=== PATIENT | male | born 1965 | race Hispanic/Latino ===

== ENCOUNTER 2021-10-05 18:35 | Inpatient (IN) | payer OTHER, SELFPAY ==
[~2021-10-05 18:35] MED LIST: Iopamidol-370 76% 500 ML 1 ML ONE
[2021-10-05 19:22] LABS: Hemoglobin 12.2 g/dL (14.0-18.0); Mean Corpuscular HGB CONC 33.4 g/dL (32.0-36.0); Mean Corpuscular Hemoglobin 30.6 pg (27.0-31.0); Mean Corpuscular Volume 91.6 fL (78.0-98.0); Red Blood Cell (RBC) Count 3.99 mill/uL (4.70-6.10); White Blood Cell (WBC) Count 4.3 thou/uL (4.8-10.8)
[2021-10-05 19:23] LABS: #Monocytes 0.4 thou/uL (0.11-0.59); #Neutrophils 2.8 thou/uL (1.40-6.50); %Basophils 0.5 % (0.0-1.0); %Eosinophils 1.1 % (0.0-10.0); %Lymphocytes 22.5 % (21.0-51.0); %Monocytes 9.9 % (0.0-10.0)
[2021-10-05 19:39] LABS: ALT (SGPT) 81 U/L (8-55); AST (SGOT) 86 U/L (5-34); Albumin 3.4 g/dL (3.5-5.0); Alcohol Less than 10 mg/dL (Less than 10); Alkaline Phosphatase 91 U/L (40-110); Anion Gap 15 mmol/L (10-20); BUN (Urea Nitrogen) 15 mg/dL (8.4-25.7); Calc. Creatinine Clearance 0 mL/min (70-130); Calcium 8.9 mg/dL (7.8-10.44); Carbon Dioxide 22 mmol/L (22-29); Chloride 99 mmol/L (98-107); Globulin 3.2 g/dL (2.4-3.5); Glucose 227 mg/dL (70-105); Potassium 4.1 mmol/L (3.5-5.1); Protein, Total 6.6 g/dL (6.0-8.3); Sodium 132 mmol/L (136-145)
[2021-10-05 19:43] LABS: Mean Platelet Volume 8.8 fL (7.4-10.4); Platelet Count 69 thou/uL (130-400); Platelet Morphology Comment Appears Decreased; RBC Morphology Normal
[2021-10-05 19:53] LABS: INR-International Normal Ratio 1.3; PTT 32.1 sec (22.9-36.1)
[2021-10-05 20:53] LABS: Actual Bicarbonate (HCO3a) 22.9 mEq/L (22-28); Analyzer IN Cardio ER; CO2 Tension 44.1 mmHg (35.0-45.0); Calcium, Ionized (arterial) 1.16 mmol/L (1.12-1.30); Carboxyhemoglobin (COHb) 0.7 gm% (0.0-3.0); Hemoglobin (Hb) 13.9 g/dL (14.0-18.0); O2 Tension (PaO2), arterial 83.6 mmHg (80.0-100.0); Potassium - ABG Lab 4.94 mmol/L (3.70-5.30); pH, Arterial 7.33 (7.35-7.45)
[2021-10-05 20:57] LABS: ALV-art Gradient 60.915 mmHg (0-20); Puncture Site RRA
[2021-10-05 21:11] LABS: Bacteria/HPF None Seen HPF (None Seen); Bilirubin Negative (Negative); Blood, Urine 1+ (Negative); Clarity Clear (Clear); Glucose, Urine (Dipstick) 70 mg/dL (Negative); Ketone, Urine 10 mg/dL (Negative); Leukocyte Negative Leu/uL (Negative); Nitrite Negative (Negative); Protein, Urine (Dipstick) 20 mg/dL (Neg-Trace); RBC/HPF 0-3 HPF (0-3); Squamous Epithelial None Seen HPF (0-3); Urobilinogen Normal mg/dL (Less than 2); WBC/HPF 0-3 HPF (0-3); pH, Urine 5.5 (5.0-9.0)
[2021-10-05 21:15] LABS: Specific Gravity, Urine 1.045 (1.002-1.036)
[2021-10-05 21:17] LABS: Amphetamine Detected (NotDetected); Barbiturates Screen Not Detected (NotDetected); Benzodiazepine Screen Not Detected (NotDetected); Cocaine Metabolite Screen Not Detected (NotDetected); Methadone Not Detected (NotDetected); Methamphetamine Not Detected (NotDetected); Opiate Screen Not Detected (NotDetected); Oxycodone Screen Not Detected (NotDetected); Phencyclidine (PCP) Not Detected (NotDetected); THC/Cannabinoid Screen Detected (NotDetected); Tricyclic Screen Not Detected (NotDetected)
[2021-10-05 21:47] LABS: SARS-CoV-2 NAA Rapid Test Not Detected (NotDetected)
[2021-10-05 22:13] LABS: Lactic Acid 2.2 mmol/L (0.5-2.2)
[2021-10-05 22:47] VITALS: BMI 43.3
[2021-10-05] MEDS: Sodium Chloride 0.9% 1,000 ML IV SCH (23:22)
[2021-10-06] MEDS ORDERED: Acetaminophen 325 MG TAB PO PRN (00:35)
[2021-10-06] MEDS ORDERED: Dextrose 5% in Water 1,000 ML IV PRN (00:36)
[2021-10-06] MEDS ORDERED: Dextrose 50% Abboject 50 ML SYRINGE SLOW IVP PRN (00:36)
[2021-10-06] MEDS ORDERED: HumaLOG 300 UNITS/3 ML VIAL SC PRN (00:36)
[2021-10-06] MEDS ORDERED: hydrALAZINE 20 MG/ML VIAL SLOW IVP PRN (00:39)
[2021-10-06 04:20] LABS: #Lymphocytes 0.6 thou/uL (1.20-3.40); #Monocytes 0.3 thou/uL (0.11-0.59); %Eosinophils 0.3 % (0.0-10.0); %Lymphocytes 15.7 % (21.0-51.0); %Monocytes 6.9 % (0.0-10.0); %Neutrophils 77.1 % (42.0-75.0); Hemoglobin 11.8 g/dL (14.0-18.0); Mean Corpuscular HGB CONC 34.6 g/dL (32.0-36.0); Mean Corpuscular Hemoglobin 31.7 pg (27.0-31.0); Mean Corpuscular Volume 91.7 fL (78.0-98.0); Mean Platelet Volume 9.4 fL (7.4-10.4); Platelet Count 61 thou/uL (130-400); RBC Distribution Width 11.9 % (11.5-14.5); Red Blood Cell (RBC) Count 3.73 mill/uL (4.70-6.10); White Blood Cell (WBC) Count 3.9 thou/uL (4.8-10.8)
[2021-10-06 04:28] LABS: ALT (SGPT) 77 U/L (8-55); AST (SGOT) 76 U/L (5-34); Albumin 3.5 g/dL (3.5-5.0); Alkaline Phosphatase 96 U/L (40-110); Anion Gap 10 mmol/L (10-20); BUN (Urea Nitrogen) 17 mg/dL (8.4-25.7); Bilirubin, Total 0.8 mg/dL (0.2-1.2); Calc. Creatinine Clearance 134 mL/min (70-130); Calcium 9.2 mg/dL (7.8-10.44); Carbon Dioxide 28 mmol/L (22-29); Chloride 102 mmol/L (98-107); Globulin 3.4 g/dL (2.4-3.5); Glucose 206 mg/dL (70-105); Potassium 4.6 mmol/L (3.5-5.1); Protein, Total 6.9 g/dL (6.0-8.3); Sodium 135 mmol/L (136-145)
[2021-10-06] MEDS: Sodium Chloride 0.9% 1,000 ML IV SCH (06:13)
[2021-10-06] MEDS ORDERED: FLU VACC QS2021-22(6MOS UP)/PF 60 MCG/0.5 ML SYRINGE IM ONE (09:00)
[2021-10-06] MEDS ORDERED: Senokot S 8.6-50 MG TAB PO PRN (10:04)
[2021-10-06] MEDS ORDERED: GUAIFENESIN SF SOLN 200 MG/10 ML UDCUP PO PRN (10:04)
[2021-10-06] MEDS ORDERED: Loratadine 10 MG TAB PO PRN (10:04)
[2021-10-06] MEDS ORDERED: HYDROcodone/Acetaminophen 5/325 mg Tablet PO PRN (10:04)
[2021-10-06] MEDS ORDERED: Ondansetron PF 4 MG/2 ML Vial IVP PRN (10:04)
[2021-10-06] MEDS ORDERED: Ondansetron ODT 4 MG TAB PO PRN (10:04)
[2021-10-06] MEDS ORDERED: Calcium Carbonate 500 MG ChewTAB PO PRN (10:04)
[2021-10-06] MEDS ORDERED: Bisacodyl 5 MG TAB PO PRN (10:04)
[2021-10-06] MEDS ORDERED: Cepastat Lozenges 1 LOZ PO PRN (10:04)
[2021-10-06] MEDS ORDERED: Sodium Chloride 0.65% Nasal 44 ML BOT EA NARE PRN (10:04)
[2021-10-06] MEDS: HumaLOG 300 UNITS/3 ML VIAL SC PRN ×2 (12:12→16:15)
[2021-10-06] MEDS: Magnesium Oxide 400 MG TAB PO SCH (20:01)
[2021-10-07 04:30] LABS: #Lymphocytes 0.7 thou/uL (1.20-3.40); #Monocytes 0.2 thou/uL (0.11-0.59); #Neutrophils 1.2 thou/uL (1.40-6.50); %Eosinophils 1.9 % (0.0-10.0); %Lymphocytes 31.9 % (21.0-51.0); %Monocytes 11.4 % (0.0-10.0); %Neutrophils 54.8 % (42.0-75.0); Hemoglobin 12.5 g/dL (14.0-18.0); Mean Corpuscular HGB CONC 34.9 g/dL (32.0-36.0); Mean Corpuscular Volume 91.9 fL (78.0-98.0); Mean Platelet Volume 9.1 fL (7.4-10.4); Platelet Count 61 thou/uL (130-400); RBC Distribution Width 11.9 % (11.5-14.5); Red Blood Cell (RBC) Count 3.89 mill/uL (4.70-6.10); White Blood Cell (WBC) Count 2.1 thou/uL (4.8-10.8)
[2021-10-07 04:42] LABS: ALT (SGPT) 65 U/L (8-55); AST (SGOT) 66 U/L (5-34); Albumin 3.4 g/dL (3.5-5.0); Alkaline Phosphatase 110 U/L (40-110); Anion Gap 13 mmol/L (10-20); BUN (Urea Nitrogen) 13 mg/dL (8.4-25.7); Bilirubin, Total 0.4 mg/dL (0.2-1.2); Calc. Creatinine Clearance 173 mL/min (70-130); Calcium 9.1 mg/dL (7.8-10.44); Carbon Dioxide 24 mmol/L (22-29); Chloride 103 mmol/L (98-107); Globulin 3.5 g/dL (2.4-3.5); Glucose 167 mg/dL (70-105); Protein, Total 6.9 g/dL (6.0-8.3); Sodium 136 mmol/L (136-145)
[2021-10-07] MEDS: metFORMIN 500 MG TAB PO SCH ×2 (08:35→17:21)
[2021-10-07] MEDS: Magnesium Oxide 400 MG TAB PO SCH ×2 (08:35→21:03)
[2021-10-07] MEDS: Multivitamin W/ Minerals 1 TAB PO SCH (08:35)
[2021-10-07] MEDS: Folic Acid 1 MG TAB PO SCH (08:35)
[2021-10-07] MEDS: Thiamine 100 MG TAB PO SCH (08:36)
[2021-10-07] MEDS: Cyanocobalamin (Vitamin B-12) 1,000 MCG TAB PO SCH (08:36)
[2021-10-07] MEDS: HumaLOG 300 UNITS/3 ML VIAL SC PRN (12:13)
[2021-10-08 06:41] LABS: #Lymphocytes 0.7 thou/uL (1.20-3.40); #Monocytes 0.3 thou/uL (0.11-0.59); #Neutrophils 1.3 thou/uL (1.40-6.50); %Basophils 0.3 % (0.0-1.0); %Lymphocytes 30.7 % (21.0-51.0); %Monocytes 10.9 % (0.0-10.0); %Neutrophils 56.1 % (42.0-75.0); Mean Corpuscular Hemoglobin 31.1 pg (27.0-31.0); Mean Corpuscular Volume 91.2 fL (78.0-98.0); Mean Platelet Volume 8.6 fL (7.4-10.4); Platelet Count 62 thou/uL (130-400); RBC Distribution Width 11.8 % (11.5-14.5); Red Blood Cell (RBC) Count 4.19 mill/uL (4.70-6.10); White Blood Cell (WBC) Count 2.4 thou/uL (4.8-10.8)
[2021-10-08 06:44] LABS: ALT (SGPT) 64 U/L (8-55); AST (SGOT) 68 U/L (5-34); Albumin 3.7 g/dL (3.5-5.0); Alkaline Phosphatase 93 U/L (40-110); Anion Gap 12 mmol/L (10-20); BUN (Urea Nitrogen) 11 mg/dL (8.4-25.7); Bilirubin, Total 0.8 mg/dL (0.2-1.2); Calc. Creatinine Clearance 185 mL/min (70-130); Calcium 9.4 mg/dL (7.8-10.44); Carbon Dioxide 27 mmol/L (22-29); Chloride 101 mmol/L (98-107); Globulin 3.6 g/dL (2.4-3.5); Glucose 119 mg/dL (70-105); Potassium 3.7 mmol/L (3.5-5.1); Protein, Total 7.3 g/dL (6.0-8.3); Sodium 136 mmol/L (136-145)
[2021-10-08 07:48] VITALS: BP 140/80; TEMP 97.8
[2021-10-08] MEDS: Multivitamin W/ Minerals 1 TAB PO SCH (09:01)
[2021-10-08] MEDS: Thiamine 100 MG TAB PO SCH (09:01)
[2021-10-08] MEDS: Magnesium Oxide 400 MG TAB PO SCH (09:01)
[2021-10-08] MEDS: Cyanocobalamin (Vitamin B-12) 1,000 MCG TAB PO SCH (09:01)
[2021-10-08] MEDS: metFORMIN 500 MG TAB PO SCH (09:01)
[2021-10-08] MEDS: Folic Acid 1 MG TAB PO SCH (09:01)
== END 2021-10-08 11:28 | disposition home or self-care (01) | DRG 917 ==
LOC: ERS 18:35 → IMCU/EMU 21:08 → NEURO 10-06 13:34
PROVIDERS: ADMIT Internal Medicine; ATTEND Internal Medicine
DX: T50.901A Poisoning by unspecified drugs, medicaments and biological substances, accidental (unintentional), initial encounter (principal); G92.8 Other toxic encephalopathy; D61.818 Other pancytopenia; Z68.41 Body mass index [BMI] 40.0-44.9, adult; D68.9 Coagulation defect, unspecified; E87.1 Hypo-osmolality and hyponatremia; I10 Essential (primary) hypertension; E66.01 Morbid (severe) obesity due to excess calories; E86.0 Dehydration; E11.65 Type 2 diabetes mellitus with hyperglycemia; K70.30 Alcoholic cirrhosis of liver without ascites; F12.10 Cannabis abuse, uncomplicated; Z20.822 Contact with and (suspected) exposure to COVID-19; E11.69 Type 2 diabetes mellitus with other specified complication; Y92.9 Unspecified place or not applicable; Z79.899 Other long term (current) drug therapy
CPT/HCPCS: 36415; 36416; 36600; 51701; 70450; 70496; 70498; 74176; 80053; 80306; 80307; 81003; 81015; 82140; 82805; 83605; 83690; 84484; 85025; 85610; 85730; 87040; 87086; 90471; 90686; 94760; G0008; J1815; J7050; Q9967; U0002